=== PATIENT | female | born 1970 | race Caucasian/White ===

== ENCOUNTER 2020-02-20 00:11 | Outpatient (CLI) | payer OTHER, SELFPAY ==
[2020-02-21 00:18] LABS: SARS-CoV-2 RNA PCR Negative
== END 2020-02-20 00:12 | disposition home or self-care (01) ==
LOC: ANHCOVIDDT 00:11
PROVIDERS: PCP Nurse Practitioner Adult Health; Visit Provider Internal Medicine Gastroenterology
DX: Z01.818 Encounter for other preprocedural examination (principal); Z11.59 Encounter for screening for other viral diseases
CPT/HCPCS: 87635; C9803; U0003

== ENCOUNTER 2020-02-23 01:45 | Day surgery (SDC) | payer OTHER, SELFPAY ==
[2020-02-17 16:11] VITALS: BMI 40.0
[2020-02-23 07:01] VITALS: BP 170/91; PULSE 94; RESP 20; TEMP 36.7; O2SAT 100
--- NOTE | 2020-02-23 07:09 | PM.HPGS ---
History of Present Illness History of Present Illness Consent: Risks, benefits, and alternatives have been discussed and questions answered. Patient agrees to proceed with procedure. Chief complaint: Neoplasm Screening Narrative: Amira Mcqueen is a 49 year old W female referred for her 1st screening colonoscopy. Patient is asymptomatic. Number terminal grandfather had colon cancer diagnosed in his 60s. [facility] Past Medical History Medical History (Updated 02/23/20 @ 07:10 by Jonah Arciniega MD) Hypertension Obesity Meds Home Medications and Allergies Home Medications Medication Instructions Recorded Confirmed Type cetirizine [Zyrtec] 10 mg PO DAILY 02/17/20 02/17/20 History escitalopram oxalate 5 mg PO DAILY 02/17/20 02/17/20 History losartan 50 mg PO DAILY 02/17/20 02/17/20 History magnesium 400 mg PO DAILY 02/17/20 02/17/20 History kn-uv-AL-vit Q-vfdwm-rpd-coQ10 1 cap PO DAILY 02/17/20 02/17/20 History [Daily Multivitamin] norethindrone (contraceptive) 0.35 mg PO DAILY 02/17/20 02/17/20 History potassium gluconate 198 mg PO DAILY 02/17/20 02/17/20 History vitamin D3-vitamin K2 (MK4) 1 tablet PO DAILY 02/17/20 02/17/20 History Allergies Allergy/AdvReac Type Severity Reaction Status Date / Time No Known Allergies Allergy Mild Unverified 03/08/07 16:57 Vital Signs Vital Signs - 24 hr 02/23/20 07:01 Temperature 36.7 C Pulse Rate 94 Respiratory Rate 20 Blood Pressure 170/91 H Pulse Oximetry 100 Exam Const: Orientation/consciousness: patient oriented x3 Resp: Auscultation: clear to auscultation bilaterally Cardio: Rate: regular rate Rhythm: regular rhythm Heart sounds: no murmurs GI: GI Palp: Yes Soft to palpation, No Tenderness to palpation present (GI), Yes No hepatosplenomegaly present and No Palpable mass present Auscultation: normal bowel sounds Neuro: General: patient oriented x3 and no focal motor deficits Extrem: General: no pedal edema Assessment and Plan Additional Plan screening colonoscopy
--- NOTE | 2020-02-23 07:11 | P.PNAN_ITS ---
Anes - Initial Pre Proc Eval Procedure: Operation Date: 02/23/20 08:00 Proposed Procedures p Screening Colonoscopy - Jonah Arciniega MD Date/Time: 02/23/20 07:11 Surgeon: Jonah Arciniega MD Pre Op Diagnosis: Neoplasm Screening Patient Data Age: 49 Gender: F Height: 5 ft 5 in Weight: 107.9 kg Last Vital Signs Temp 36.7 C 02/23/20 07:01 Pulse 94 02/23/20 07:01 Resp 20 02/23/20 07:01 BP 170/91 H 02/23/20 07:01 Pulse Ox 100 02/23/20 07:01 Allergies Allergy/AdvReac Type Severity Reaction Status Date / Time No Known Allergies Allergy Mild Unverified 03/08/07 16:57 Home Medications Medication Instructions Recorded Confirmed Type cetirizine [Zyrtec] 10 mg PO DAILY 02/17/20 02/17/20 History escitalopram oxalate 5 mg PO DAILY 02/17/20 02/17/20 History losartan 50 mg PO DAILY 02/17/20 02/17/20 History magnesium 400 mg PO DAILY 02/17/20 02/17/20 History em-uv-TE-vit Q-dqpcp-zke-coQ10 1 cap PO DAILY 02/17/20 02/17/20 History [Daily Multivitamin] norethindrone (contraceptive) 0.35 mg PO DAILY 02/17/20 02/17/20 History potassium gluconate 198 mg PO DAILY 02/17/20 02/17/20 History vitamin D3-vitamin K2 (MK4) 1 tablet PO DAILY 02/17/20 02/17/20 History Patient hx anesthesia problems: none Family hx anesthesia problems: none [facility] Past Medical History Medical History (Updated 02/23/20 @ 07:10 by Jonah Arciniega MD) Hypertension Obesity Anes - Eval Final PreProcedure Day of Procedure 02/23/20 07:11 Patient weight: morbidly obese Heart: regular rate and rhythm Lungs: clear to auscultation Airway: Mallampati scale class II Neurological: alert and oriented Last oral intake: >/= 8 hours ASA classification: III Emergent: no Anesthetic plan: proceed Anesthesia type and monitoring: general GIVS and standard monitoring Informed Consent: The patient's anesthetic plan and its attendant risks and benefits were discussed with the patient/family/POA. Questions were solicited and answers provided to the satisfaction of the patient/family/POA.
[2020-02-23] MEDS: LACTATED RINGERS 1,000 ML 150 ML IV CONT (07:13)
[2020-02-23 08:34] VITALS: BP 135/70; PULSE 92; RESP 20; O2SAT 92
[2020-02-23 08:44] VITALS: BP 139/80; PULSE 65; RESP 20; O2SAT 100
[2020-02-23 08:52] VITALS: BP 155/81; PULSE 63; RESP 20; O2SAT 96
== END 2020-02-23 09:22 | disposition home or self-care (01) ==
PROVIDERS: PCP Nurse Practitioner Adult Health; Visit Provider Internal Medicine Gastroenterology
PROC: 0DJD8ZZ Inspection of Lower Intestinal Tract, Via Natural or Artificial Opening Endoscopic (ICD-10-PCS; CPT 45378; principal; 2020-02-23 08:00)
DX: Z12.11 Encounter for screening for malignant neoplasm of colon (principal); D12.3 Benign neoplasm of transverse colon; K64.8 Other hemorrhoids; I10 Essential (primary) hypertension; E66.9 Obesity, unspecified; Z68.39 Body mass index [BMI] 39.0-39.9, adult
CPT/HCPCS: 45385; 45381; 88305; J2704; J7120